=== PATIENT | female | born 1955 | race Two or more races ===

== ENCOUNTER 2017-08-17 19:36 | Emergency (ER) | payer MEDICARE ==
[~2017-08-17] VITALS: Ht 157.5 cm; Wt 90.7 kg
[2017-08-17] MEDS ORDERED: XYLOCAINE 2%-EPI 1:100,000 ONE (19:52)
[2017-08-17] MEDS ORDERED: LIDOCAINE 1% VIAL ONE (19:53)
[2017-08-17] MEDS ORDERED: TRIPLE ANTIBIOTIC OINTMENT TP ONE (19:54)
--- NOTE | 2017-08-17 20:11 | ER.PDOC ---
General Chief Complaint: Extremities Stated Complaint: RIGHT HAND PINKY FINGER LACERATION Time seen by MD: 19:45 Source: patient History of Present Illness Initial Comments cut R finger 1 day minimal no nv compromise Occurred: this afternoon Where: home Severity: mild Associated Symptoms: tingling Modifying Factors: pain on movement Allergies: Coded Allergies: egg (Unverified Allergy, Unknown, NAUSEATED, 08/17/17) Past Medical History Medical History: cardiac problems, COPD, high cholesterol, hypertension, renal disease Surgical History: hysterectomy LMP (females 10-50): hysterectomy Family History Significant Family History: no pertinent family hx Social History Smoking: less than 1 pack/day Alcohol Use: none Drug Use: none Review of Systems All Other Systems: Reviewed and Negative Physical Exam Wrist: nml inspection, non-tender, nml ROM Forearm/Elbow: nml inspection, non-tender, nml ROM Arm/Shoulder: nml inspection, non-tender, nml ROM Head/ENT: nml inspection, pharynx nml Neck/Back: nml inspection, non-tender Respiratory: chest non-tender, breath sounds nml CVS: heart sounds normal Abdomen: non-tender, no organomegaly Laceration/Wound Repair Laceration/Wound Repair : Wound Location: R 5th finger Wound Length (cm): 2 Wound cleaned: betadine Distal NVT: neuro intact, vasc intact Anesthesia type: digital block Anesthesia: 1% Lidocaine Volume Anesthetic (ccs): 2 Wound's Depth, Shape: flap Wound Explored: contaminated Tendon Intact: Yes Wound Debrided: minimal Wound Repaired With: sutures Suture Size/Type: 4:0 Number of Sutures: 3 Layer Closure?: No Deep Layer Suture Size/Type: 4:0 Retention sutures placed: No Nail/Nail Matrix: nail reattached Sterile Dressing Applied?: Yes Departure Time of Disposition: 20:39 Disposition: 01 HOME, SELF-CARE Impression: Primary Impression: Laceration Condition: Stable Referrals: PCP,UNKNOWN (PCP) PRIMARY CARE PROVIDER Duration or Time Spent with Pa: EVANGELIST COATES MD Aug 17, 2017 20:11
[2017-08-17] MEDS ORDERED: BOOSTRIX VACCINE SYRINGE IM ONE (20:30)
[2017-08-17 20:57] VITALS: BP 154/71
== END 2017-08-17 20:34 | disposition home or self-care (01) ==
LOC: ER 19:36
DX: S61.216A Laceration without foreign body of right little finger without damage to nail, initial encounter (principal); E78.00 Pure hypercholesterolemia, unspecified; J44.9 Chronic obstructive pulmonary disease, unspecified; I10 Essential (primary) hypertension; Z91.012 Allergy to eggs; Z90.710 Acquired absence of both cervix and uterus; W45.8XXA Other foreign body or object entering through skin, initial encounter; Y93.89 Activity, other specified; Y92.89 Other specified places as the place of occurrence of the external cause; Y99.8 Other external cause status
CPT/HCPCS: 12041; 99284; J2001